=== PATIENT | male | born 1935 | race Caucasian/White ===

== ENCOUNTER 2024-12-27 15:15 | Inpatient (IN) | payer OTHER ==
[~2024-12-27] VITALS: Ht 167.6 cm; Wt 39.9 kg
[2024-12-27 15:19] VITALS: O2SAT 99
[2024-12-27] MEDS: SODIUM CHLORIDE 0.9% 1,000 ML IV ONE (15:40)
[2024-12-27 16:07] LABS: HEMATOCRIT. 34.7 % (42.0-52.0); HEMOGLOBIN. 11.8 g/dL (14.0-18.0); MEAN PLATELET VOLUME 7.3 fl (7.4-10.4); PLATELET 195 x1000/uL (130-400); RED BLOOD CELL COUNT 3.71 mill/uL (4.7-6.1); RED CELL DISTRIBUTION WIDTH 13.7 % (11.6-14.6)
[2024-12-27 16:17] LABS: INR 1.0
[2024-12-27 16:31] LABS: CREATININE 1.5 mg/dL (0.6-1.3)
[2024-12-27 16:32] LABS: UREA NITROGEN BLOOD 20 mg/dL (9-23)
[2024-12-27 16:33] LABS: ASPARTATE AMINOTRANSFERASE 32 IU/L (<34); TROPONIN I HIGH SENSITIVITY 108 ng/L (3.0-53)
[2024-12-27 16:34] LABS: BILIRUBIN DIRECT 0.3 mg/dL (<=3.0); BILIRUBIN TOTAL 0.7 mg/dL (0.1-1.0); PROTEIN TOTAL 6.9 g/dL (6.0-8.3)
[2024-12-27 16:36] LABS: BAND% 1.0 % (1.0-6.0); LYMPHOCYTES % MANUAL 4.0 % (20.0-50.0); MONOCYTES % MANUAL 14.0 % (2.0-8.0); NEUTROPHILS % MANUAL 81.0 % (45.0-75.0); PLATELET ESTIMATE NORMAL
[2024-12-27 17:41] LABS: TROPONIN I HIGH SENSITIVITY 246 ng/L (3.0-53)
[2024-12-27] MEDS: ASPIRIN 325MG TABLET PO ONE (18:32)
[2024-12-27] MEDS: ENOXAPARIN 40MG/0.4ML SYR SUBCUT ONE (18:33)
[2024-12-27 20:10] VITALS: BP 124/84; PULSE 96; RESP 16; TEMP 36.8; O2SAT 100
[2024-12-27 20:12] VITALS: BP 124/84; PULSE 97; RESP 17; TEMP 36.8072
[2024-12-27] MEDS ORDERED: DOCUSATE SODIUM 100MG CAPSULE PO PRN (22:45)
[2024-12-27] MEDS ORDERED: ACETAMINOPHEN 325MG TABLET PO PRN (22:45)
[2024-12-27] MEDS ORDERED: CLONIDINE 0.1MG TABLET PO PRN (22:45)
[2024-12-27] MEDS ORDERED: ONDANSETRON HCL 4MG/2ML INJ IV PRN (22:45)
[2024-12-27] MEDS ORDERED: IPRATROPIUM/ALBUTEROL 0.5-3(2.5)MG/3ML NEB HHN PRN (22:45)
[2024-12-27] MEDS ORDERED: NITROGLYCERIN 0.4MG TABLET SL SL PRN (23:00)
[2024-12-27] MEDS ORDERED: IOHEXOL-350 100 ML BOTTLE ONE (23:48)
[2024-12-28] VITALS: BP 144/84; PULSE 79; RESP 14; TEMP 36.6; O2SAT 100
[2024-12-28 00:08] LABS: CLARITY URINE CLEAR (CLEAR); COLOR URINE YELLOW (YELLOW); GLUCOSE URINE NEGATIVE (NEGATIVE); KETONES URINE NEGATIVE (NEGATIVE); LEUKOCYTE ESTERASE URINE NEGATIVE (NEGATIVE); NITRITE URINE NEGATIVE (NEGATIVE); OCCULT BLOOD URINE 2+ (NEGATIVE); PH URINE 8.0 (4.5-8.0); PROTEIN URINE 1+ (NEGATIVE); SPECIFIC GRAVITY URINE 1.020 (1.005-1.030); UROBILINOGEN URINE 0.2 E.U./dL (0.2-1.0)
[2024-12-28 00:13] LABS: *AMPHETAMINES SCREEN URINE NEGATIVE (NEGATIVE); *BARBITURATES SCREEN URINE NEGATIVE (NEGATIVE); *BENZODIAZEPINES SCREEN URINE NEGATIVE (NEGATIVE); *COCAINE SCREEN URINE NEGATIVE (NEGATIVE); CANNABINOID URINE SCREEN NEGATIVE (NEGATIVE); ECSTASY MDMA SCREEN URINE NEGATIVE (NEGATIVE); METHADONE URINE SCREEN NEGATIVE (NEGATIVE); OPIATES URINE SCREEN NEGATIVE (NEGATIVE); PHENCYCLIDINE URINE SCREEN NEGATIVE (NEGATIVE)
[2024-12-28] MEDS: DEXT 5%/0.45% NACL 1000ML 1,000 ML IV SCH (00:19)
[2024-12-28 00:51] LABS: BACTERIA URINE NONE SEEN; RBC URINE 15-25 /hpf (0-2); SQUAMOUS EPITHELIAL CELL URINE RARE /lpf (RARE/1+); WBC URINE 0-2 /hpf (0-2)
[2024-12-28 04:00] VITALS: BP 118/59; PULSE 70; RESP 17; TEMP 36.8; O2SAT 100
[2024-12-28 07:10] LABS: BASOPHILS % 0.9 % (0.0-2.0); EOSINOPHILS % 1.5 % (0.0-5.0); HEMATOCRIT. 34.7 % (42.0-52.0); HEMOGLOBIN. 11.6 g/dL (14.0-18.0); LYMPHOCYTES % 14.3 % (20.0-50.0); MEAN PLATELET VOLUME 7.5 fl (7.4-10.4); MONOCYTES % 11.4 % (2.0-8.0); NEUTROPHILS % 71.9 % (40.0-76.0); PLATELET 172 x1000/uL (130-400); RED BLOOD CELL COUNT 3.71 mill/uL (4.7-6.1); RED CELL DISTRIBUTION WIDTH 14.1 % (11.6-14.6)
[2024-12-28 07:41] LABS: CREATININE 1.4 mg/dL (0.6-1.3); TRIGLYCERIDE 48.0 mg/dL (0-150); UREA NITROGEN BLOOD 17.0 mg/dL (9-23)
[2024-12-28 07:42] LABS: LDL CHOLESTEROL 100.0 mg/dL (5-100)
[2024-12-28 07:45] LABS: T4 FREE 0.97 ng/dL (0.89-1.76)
[2024-12-28 08:00] VITALS: BP 121/61; PULSE 69; RESP 19; TEMP 36.5; O2SAT 99
[2024-12-28] MEDS: PANTOPRAZOLE SODIUM 40 MG/VIAL IV SCH (09:09)
[2024-12-28] MEDS: CLOPIDOGREL 75MG TABLET PO SCH (09:09)
[2024-12-28] MEDS: ASPIRIN 81MG EC TABLET PO SCH (11:53)
[2024-12-28 12:00] VITALS: BP 114/57; PULSE 69; RESP 16; TEMP 36.4; O2SAT 100
[2024-12-28 14:11] LABS: CREATINE KINASE MB FRACTION 5.3 ng/mL (0.5-3.6)
[2024-12-28 14:15] LABS: FOLIC ACID (FOLATE) SERUM 16.09 ng/mL (>5.38); VITAMIN B12 SERUM 421 pg/mL (211-911)
[2024-12-28 14:40] LABS: TROPONIN I HIGH SENSITIVITY 1173 ng/L (3.0-53)
[2024-12-28 16:00] VITALS: BP 109/58; PULSE 83; RESP 13; TEMP 36.9; O2SAT 100
[2024-12-28] MEDS: ENOXAPARIN 40MG/0.4ML SYR SUBCUT SCH (18:02)
[2024-12-28 18:57] LABS: CREATINE KINASE MB FRACTION 5.6 ng/mL (0.5-3.6)
[2024-12-28] MEDS: SODIUM CHLORIDE 0.45% 1,000 ML IV SCH (19:00)
[2024-12-28 19:04] LABS: TROPONIN I HIGH SENSITIVITY 966 ng/L (3.0-53)
[2024-12-28 20:02] VITALS: BP 141/91; PULSE 71; PULSE 72; RESP 15; RESP 19; TEMP 36.7; O2SAT 100; O2SAT 97
[2024-12-28] MEDS ORDERED: ENOXAPARIN 30MG/0.3ML SYR SUBCUT SCH (21:00)
[2024-12-28] MEDS: ATORVASTATIN CALCIUM 40MG TABLET PO SCH (22:41)
[2024-12-29 00:02] VITALS: BP 137/65; PULSE 73; RESP 15; TEMP 36.2; O2SAT 100
[2024-12-29 04:02] VITALS: BP 125/55; PULSE 90; RESP 17; TEMP 36.6; O2SAT 98
[2024-12-29 07:58] LABS: BASOPHILS % 1.0 % (0.0-2.0); EOSINOPHILS % 2.5 % (0.0-5.0); HEMATOCRIT. 34.5 % (42.0-52.0); HEMOGLOBIN. 11.5 g/dL (14.0-18.0); LYMPHOCYTES % 16.0 % (20.0-50.0); MEAN PLATELET VOLUME 7.5 fl (7.4-10.4); MONOCYTES % 8.7 % (2.0-8.0); NEUTROPHILS % 71.8 % (40.0-76.0); PLATELET 167 x1000/uL (130-400); RED BLOOD CELL COUNT 3.72 mill/uL (4.7-6.1); RED CELL DISTRIBUTION WIDTH 14.1 % (11.6-14.6)
[2024-12-29 08:00] VITALS: BP_SYST 112; BP_SYST 135; BP_DIAS 53; BP_DIAS 64; PULSE 58; PULSE 69; RESP 18; TEMP 36.6; O2SAT 97
[2024-12-29 08:12] LABS: TROPONIN I HIGH SENSITIVITY 1178 ng/L (3.0-53)
[2024-12-29 08:13] LABS: CREATININE 1.4 mg/dL (0.6-1.3); TRIGLYCERIDE 79 mg/dL (0-150); UREA NITROGEN BLOOD 14 mg/dL (9-23)
[2024-12-29 08:14] LABS: LDL CHOLESTEROL 91 mg/dL (5-100)
[2024-12-29] MEDS ORDERED: CLOP-31 PO (10:50)
[2024-12-29] MEDS ORDERED: LIP40 PO (10:50)
[2024-12-29] MEDS ORDERED: ASPI-1406 PO (10:50)
[2024-12-29 12:00] VITALS: BP 131/63; PULSE 74; RESP 22; TEMP 36.7; O2SAT 96
[2024-12-29 12:13] VITALS: BP_SYST 116; BP_SYST 143; BP_DIAS 69; BP_DIAS 83; PULSE 85; PULSE 92; RESP 18; TEMP 98; TEMP 98.1
[2024-12-29 16:00] VITALS: BP 119/69; PULSE 85; RESP 19; TEMP 36.7; O2SAT 98
[2024-12-29 16:27] LABS: CREATINE KINASE MB FRACTION 3.7 ng/mL (0.5-3.6)
[2024-12-29 16:32] LABS: TROPONIN I HIGH SENSITIVITY 634 ng/L (3.0-53)
== END 2024-12-29 16:40 | disposition home health service (06) | DRG 205 ==
LOC: ER 15:15 → EDBEDREQTM 18:12 → EDBEDREQ 18:12 → ENRESERV 19:06 → CANRESERV 19:06 → ENRESERV 19:50 → 3WST 20:10
PROVIDERS: ADMIT Internal Medicine; ATTEND Internal Medicine
DX: T17.898A Other foreign object in other parts of respiratory tract causing other injury, initial encounter (principal); I21.A1 Myocardial infarction type 2; N17.9 Acute kidney failure, unspecified; M62.82 Rhabdomyolysis; Z68.1 Body mass index [BMI] 19.9 or less, adult; D64.9 Anemia, unspecified; R62.7 Adult failure to thrive; N18.9 Chronic kidney disease, unspecified; I12.9 Hypertensive chronic kidney disease with stage 1 through stage 4 chronic kidney disease, or unspecified chronic kidney disease; H91.8X3 Other specified hearing loss, bilateral; I25.10 Atherosclerotic heart disease of native coronary artery without angina pectoris; I25.2 Old myocardial infarction; Z79.02 Long term (current) use of antithrombotics/antiplatelets; Z79.82 Long term (current) use of aspirin; Z95.1 Presence of aortocoronary bypass graft; W44.8XXA Other foreign body entering into or through a natural orifice, initial encounter; Y93.89 Activity, other specified; Y92.89 Other specified places as the place of occurrence of the external cause; Y99.8 Other external cause status
CPT/HCPCS: 36415; 71045; 71275; 74174; 76770; 80048; 80061; 80076; 80305; 81003; 82550; 82553; 82607; 82728; 82746; 83540; 83550; 83735; 83880; 84439; 84443; 84484; 85025; 85379; 93005; 93306; 93970; 96360; 96361; 96372; 99285; J1650; J2470; J7030; Q9967